=== PATIENT | female | born 1990 | race Caucasian/White ===

== ENCOUNTER 2023-07-22 15:44 | Inpatient (IN) | payer OTHER ==
[~2023-07-22] VITALS: Ht 157.5 cm; Wt 2.7 kg
[2023-08-09] MEDS ORDERED: SYNTHROID125 MCG PO (14:20)
[2023-08-09] MEDS ORDERED: INTEGRA F CAPS1 EAC1 PO (14:21)
[2023-08-09] MEDS ORDERED: ADULT LOW DOSE81 M1 PO (14:21)
[2023-08-09] MEDS ORDERED: OBSTETRIX ONE1 EAC1 PO (14:21)
[2023-08-09 14:37] LABS: HEMATOCRIT 31.7 % (36.0-45.00); HEMOGLOBIN 10.5 g/dL (12.0-15.00); MEAN CELL VOLUME 74.5 fL (80.00-100.00); MEAN CORPUSCULAR HEMOGLOBIN 24.8 pg (27.00-32.0); MEAN CORPUSCULAR HGB CONC 33.3 g/dl (32.0-36.0); PLATELET COUNT 256 K/uL (150-450); RED BLOOD COUNT 4.25 M/uL (4.00-6.00)
[2023-08-09] MEDS ORDERED: RINGERS SOLUTION,LACTATED 1,000 ML IV SCH (14:45)
[2023-08-09 14:56] LABS: INR < 0.93; PARTIAL THROMBOPLASTIN TIME 26.2 SECONDS (22.0-34.0); PROTHROMBIN TIME 9.7 SECONDS (9.0-11.5)
[2023-08-09 14:59] LABS: ALBUMIN 2.8 gm/dL (3.4-5.0); BILIRUBIN TOTAL 0.37 mg/dL (0.3-1.2); CALCIUM 9.2 mg/dL (8.5-10.1); CREATININE SERUM 0.6 mg/dL (0.55-1.02); GFR 115.85; GLOBULINA 3.4 G/DL (2.4-3.5); POTASSIUM 3.77 mEq/L (3.5-5.1); TOTAL PROTEIN 6.2 gm/dL (6.4-8.2)
[2023-08-09] MEDS ORDERED: MISOPROSTOL 25 MCG TABLET ONE (16:19)
[2023-08-09] MEDS ORDERED: MORPHINE SULFATE 4 MG/ML CARTRIDGE IV PRN (16:30)
[2023-08-09] MEDS ORDERED: MISOPROSTOL 25 MCG TABLET VAG ONE (17:00)
[2023-08-09] MEDS ORDERED: FAMOTIDINE/PF 20 MG/2 ML VIAL ONE (20:30)
[2023-08-09] MEDS ORDERED: FAMOTIDINE/PF 20 MG in 0.9 % SODIUM CHLORIDE 8 ML IV PUSH SCH (21:00)
[2023-08-10] MEDS ORDERED: OXYTOCIN 20 UNITS/500ML RL PIGGYBAG IV ONE (08:26)
[2023-08-10] MEDS ORDERED: OXYTOCIN 500 ML IV ONE (08:30)
[2023-08-10] MEDS ORDERED: FAMOTIDINE/PF 20 MG in 0.9 % SODIUM CHLORIDE 8 ML IV PUSH SCH (12:15)
[2023-08-10] MEDS ORDERED: FAMOTIDINE/PF 20 MG/2 ML VIAL ONE (12:24)
[2023-08-10] MEDS ORDERED: KETOROLAC TROMETHAMINE 30 MG VIAL IV SCH (19:15)
[2023-08-10] MEDS ORDERED: OXYTOCIN 1,000 ML IV SCH (19:15)
[2023-08-10] MEDS ORDERED: RINGERS SOLUTION,LACTATED 1,000 ML IV SCH (19:15)
[2023-08-10] MEDS ORDERED: ONDANSETRON HCL 2 MG/ML VIAL IV PRN (19:15)
[2023-08-10] MEDS ORDERED: ERYTHROMYCIN BASE 3.5 GM OINT...G. OP ONE (19:39)
[2023-08-10] MEDS ORDERED: OXYTOCIN 10 UNITS/ML VIAL ONE (19:39)
[2023-08-10] MEDS ORDERED: MORPHINE SULFATE 4 MG/ML CARTRIDGE IV SCH (20:00)
[2023-08-10] MEDS ORDERED: ERYTHROMYCIN BASE 1 GM TUBE OP ONE (22:45)
[2023-08-10] MEDS ORDERED: OXYTOCIN 10 UNITS/ML VIAL IV ONE (22:45)
[2023-08-11] MEDS ORDERED: KETOROLAC TROMETHAMINE 10 MG TABLET PO SCH
[2023-08-11] MEDS ORDERED: FAMOTIDINE/PF 20 MG/2 ML VIAL ONE (00:53)
[2023-08-11] MEDS ORDERED: ACETAMINOPHEN 500 MG GEL..CAP PO SCH ×2 (08:00→08:30)
[2023-08-11 08:12] LABS: HEMATOCRIT 24.9 % (36.0-45.00); MEAN CELL VOLUME 73.4 fL (80.00-100.00); MEAN CORPUSCULAR HEMOGLOBIN 24.1 pg (27.00-32.0); MEAN CORPUSCULAR HGB CONC 32.9 g/dl (32.0-36.0); PLATELET COUNT 211 K/uL (150-450); RED CELL DISTRIBUTION WIDTH 18.4 % (11.5-14.5)
[2023-08-11 08:13] LABS: HEMOGLOBIN 8.2 g/dL (12.0-15.00)
[2023-08-11] MEDS ORDERED: SIMETHICONE 125 MG CAPSULE PO SCH (09:00)
[2023-08-11] MEDS ORDERED: DOCUSATE CALCIUM 240 MG CAPSULE PO SCH (09:00)
== END 2023-08-12 16:15 | disposition home or self-care (01) | DRG 788 ==
LOC: OB/GYN 08-08 14:39 → LDR 08-09 12:59 → O/R 08-10 20:43 → OB/GYN 08-10 21:52
PROVIDERS: Obstetrics & Gynecology; ADMIT Obstetrics & Gynecology; ATTEND Obstetrics & Gynecology
PROC: 3E033VJ Introduction of Other Hormone into Peripheral Vein, Percutaneous Approach (ICD-10-PCS; 2023-08-09)
PROC: 3E0P7VZ Introduction of Hormone into Female Reproductive, Via Natural or Artificial Opening (ICD-10-PCS; 2023-08-09)
PROC: 4A1HXCZ Monitoring of Products of Conception, Cardiac Rate, External Approach (ICD-10-PCS; 2023-08-09)
PROC: 10D00Z1 Extraction of Products of Conception, Low, Open Approach (ICD-10-PCS; principal; 2023-08-10 19:00)
DX: O82 Encounter for cesarean delivery without indication (principal); O62.0 Primary inadequate contractions; Z3A.40 40 weeks gestation of pregnancy; Z37.0 Single live birth; Z20.822 Contact with and (suspected) exposure to COVID-19